=== PATIENT | female | born 1985 | race Caucasian/White ===

== ENCOUNTER 2017-08-10 04:16 | Emergency (ER) | payer BC, SELFPAY ==
[~2017-08-10] VITALS: Ht 160 cm; Wt 70.3 kg
[~2017-08-10 04:16] MED LIST: PAXIL10 MG; PROGESTERONE100 MG; ZOFRAN4 MG PO; ZOLOFT50 MG PO
[2017-08-10] MEDS ORDERED: IBUPROFEN 800800 M1 PO (04:39)
[2017-08-10] MEDS ORDERED: NORCO 5-325 TA1 EACH PO (04:39)
[2017-08-10] MEDS ORDERED: FLEXERIL PO (04:39)
[2017-08-10 04:50] VITALS: BP 122/83
== END 2017-08-10 04:54 | disposition home or self-care (01) ==
LOC: M.ERS 04:16
DX: M26.601 Right temporomandibular joint disorder, unspecified (principal); F41.9 Anxiety disorder, unspecified; F32.9 Major depressive disorder, single episode, unspecified; G43.909 Migraine, unspecified, not intractable, without status migrainosus

== ENCOUNTER 2017-10-11 18:00 | Emergency (ER) | payer BC ==
[~2017-10-11] VITALS: Ht 160 cm; Wt 72.6 kg
[~2017-10-11 18:00] MED LIST changes: +FLEXERIL PO; +IBUPROFEN 800800 M1 PO; +NORCO 5-325 TA1 EACH PO
[2017-10-11] MEDS ORDERED: WELLBUTRIN SR150 MG PO (18:17)
[2017-10-11] MEDS ORDERED: CLONAZEPAM 0.50.5 M1 PO (18:18)
[2017-10-11 18:46] LABS: ABSOLUTE EOSINOPHILS 0.1 thou/uL (0.0-0.7); ABSOLUTE MONOCYTES 0.5 thou/uL (0.0-1.2); ABSOLUTE NEUTROPHILS 5.7 thou/uL (1.6-8.1); BASOPHILS 0.2 %; EOSINOPHILS 1.2 %; HEMOGLOBIN 10.4 gm/dL (12.0-15.0); LYMPHOCYTES 32.4 %; MCH 31.9 pg (26.0-34.0); MCHC 33.7 g/dL (28.0-37.0); MCV 94.8 fL (80.0-100.0); MONOCYTES 5.3 %; MPV 7.1 fl. (7.2-11.1); NUCLEATED RBCS 0 /100WBC; PLATELET COUNT* 294 thou/uL (150-400); POLYS 60.9 %; RBC 3.27 mil/uL (4.20-5.00); RDW-CV 13.8 % (10.5-14.5); WBC 9.4 thou/uL (4.0-11.0)
[2017-10-11 18:54] LABS: CALCIUM 8.5 mg/dL (8.5-10.1); CREATININE 0.8 mg/dL (0.6-1.3); POTASSIUM 3.8 mmol/L (3.5-5.1)
[2017-10-11 19:04] LABS: ALBUMIN 3.2 g/dL (3.4-5.0); TOTAL BILIRUBIN 0.1 mg/dL (<0.1-1.0); TOTAL PROTEIN 6.9 g/dL (6.4-8.2)
[2017-10-11] MEDS ORDERED: XANAX 0.5 MG0.5 MG PO (19:10)
[2017-10-11 19:23] VITALS: BP 127/79
== END 2017-10-11 19:24 | disposition home or self-care (01) ==
LOC: M.ERS 18:00
PROVIDERS: Physician Assistant
DX: I10 Essential (primary) hypertension (principal); F41.9 Anxiety disorder, unspecified; D64.9 Anemia, unspecified; F32.9 Major depressive disorder, single episode, unspecified; G43.909 Migraine, unspecified, not intractable, without status migrainosus

== ENCOUNTER 2017-12-14 14:40 | Emergency (ER) | payer MEDICAID ==
[~2017-12-14] VITALS: Ht 160 cm; Wt 79.4 kg
[~2017-12-14 14:40] MED LIST changes: +CLONAZEPAM 0.50.5 M1 PO; +WELLBUTRIN SR150 MG PO; +XANAX 0.5 MG0.5 MG PO
[2017-12-14] MEDS ORDERED: NUVARING VAGIN1 EACH (14:55)
[2017-12-14 15:15] LABS: ABSOLUTE BASOPHILS 0.1 thou/uL (0.0-0.2); ABSOLUTE EOSINOPHILS 0.1 thou/uL (0.0-0.7); ABSOLUTE LYMPHOCYTES 1.6 thou/uL (0.8-5.3); ABSOLUTE MONOCYTES 0.6 thou/uL (0.0-1.2); ABSOLUTE NEUTROPHILS 5.2 thou/uL (1.6-8.1); BASOPHILS 1.2 %; EOSINOPHILS 1.4 %; HEMATOCRIT 37.2 % (37.0-47.0); HEMOGLOBIN 12.4 gm/dL (12.0-15.0); LYMPHOCYTES 21.2 %; MCHC 33.4 g/dL (28.0-37.0); MONOCYTES 7.9 %; MPV 7.1 fl. (7.2-11.1); NUCLEATED RBCS 0 /100WBC; PLATELET COUNT* 280 thou/uL (150-400); POLYS 68.3 %; RDW-CV 13.5 % (10.5-14.5); WBC 7.6 thou/uL (4.0-11.0)
[2017-12-14 15:24] LABS: ANION GAP 7 mmol/L (7-16); BUN 13 mg/dL (7-18); CALCIUM 8.5 mg/dL (8.5-10.1); CHLORIDE 104 mmol/L (98-107); CO2 26 mmol/L (21-32); GLUCOSE 115 mg/dL (70-99); POTASSIUM 3.7 mmol/L (3.5-5.1); SODIUM 137 mmol/L (136-145)
[2017-12-14 15:35] LABS: ALBUMIN 3.5 g/dL (3.4-5.0); ALKALINE PHOSPHATASE 69 U/L (46-116); LIPASE 117 U/L (73-393); MAGNESIUM 1.8 mg/dL (1.8-2.4); NT-PRO BRAIN NAT PEPTIDE 18 pg/mL (<300); SGOT 17 U/L (15-37); SGPT 21 U/L (30-65); TOTAL BILIRUBIN 0.2 mg/dL (<0.1-1.0); TOTAL PROTEIN 7.7 g/dL (6.4-8.2); TROPONIN-I LEVEL <0.06 ng/mL (<0.06)
[2017-12-14] MEDS ORDERED: ATIVAN1 MG PO (16:41)
[2017-12-14 16:47] VITALS: BP 146/86
--- NOTE | 2017-12-15 17:00 | EKG ---
[place] [address] ELECTROCARDIOGRAM REPORT Name: CALLI ROSADO Room: [facility]#: [id number] Admission: 12/14/17 Attend Phys: Discharge: 12/14/17 Date of : 83 Report #: [id number] THIS REPORT FOR: //name// [facility] ED Test Date: 2017-12-14 Test Time: 14:47:02 Pat Name: CALLI ROSADO Department: Room: Gender: F Training Manager: ALESSANDRA : 1985 Requested By: Edgardo Vega Order Number: [id number] MD: Santiago Jean Measurements Intervals [place] Rate: 110 P: 56 HI: 156 QRS: 60 QRSD: 85 T: 32 QT: 320 QTc: 433 Interpretive Statements Sinus tachycardia Baseline wander in lead(s) I,II,aVR,V1,V2 No previous ECG available for comparison Electronically Signed On 12-15-2017 16:59:49 CDT by Santiago Jean [email or web address] <ELECTRONICALLY SIGNED> By: Santiago Jean MD, [facility] 12/15/17 1659 [id number] Santiago Jean MD, FACC /EPI
== END 2017-12-14 16:48 | disposition home or self-care (01) ==
LOC: M.ERS 14:40
PROVIDERS: Emergency Medicine Emergency Medical Services
DX: R00.2 Palpitations (principal); F32.9 Major depressive disorder, single episode, unspecified; F41.9 Anxiety disorder, unspecified; G43.909 Migraine, unspecified, not intractable, without status migrainosus; K58.9 Irritable bowel syndrome, unspecified; Z90.49 Acquired absence of other specified parts of digestive tract; Z88.1 Allergy status to other antibiotic agents

== ENCOUNTER → 2019-11-03 | Outpatient (CLI) | payer OTHER ==
[~2019-11-03] MED LIST changes: +ATIVAN1 MG PO; +NUVARING VAGIN1 EACH
== END ==
LOC: M.RAD 12:36
PROVIDERS: ATTEND Family Medicine
DX: Z12.31 Encounter for screening mammogram for malignant neoplasm of breast (principal)